=== PATIENT | female | born 1985 | race Hispanic/Latino ===

== ENCOUNTER → 2022-09-04 | Day surgery (SDC) | payer BC ==
[~2022-09-04] MED LIST: FEROSUL325 MG PO; GLYCOPYRROLATE INJ 0.2 MG/ML VIAL ONE; LIDOCAINE HCL 2% LOCAL INJ 5 ML SDV VIAL INJ ONE; MIDAZOLAM HCL 2 MG/2 ML VIAL ONE; POVIDONE IODINE 0.05% 0.05 % ML PO ONE; PROPOFOL IV EMULSION 10 MG/ML 20 ML VIAL ONE
[2022-09-04 11:37] VITALS: TEMP 97.6
[2022-09-04 12:03] VITALS: BP 122/84; PULSE 76; RESP 18; O2SAT 100
== END | disposition home or self-care (01) ==
LOC: OR 08:35
PROVIDERS: ATTEND Internal Medicine Gastroenterology
DX: K62.5 Hemorrhage of anus and rectum (principal); K29.50 Unspecified chronic gastritis without bleeding; K21.00 Gastro-esophageal reflux disease with esophagitis, without bleeding; K59.00 Constipation, unspecified; K64.8 Other hemorrhoids; Z98.84 Bariatric surgery status; D64.9 Anemia, unspecified; R00.2 Palpitations; J43.9 Emphysema, unspecified; F41.9 Anxiety disorder, unspecified; Z88.0 Allergy status to penicillin; Z68.35 Body mass index [BMI] 35.0-35.9, adult; Z87.01 Personal history of pneumonia (recurrent); Z87.442 Personal history of urinary calculi; Z80.0 Family history of malignant neoplasm of digestive organs
CPT/HCPCS: 43239; 45378; 81025; J2001; J2250; J2704